=== PATIENT | female | born 1960 | race Caucasian/White ===

== ENCOUNTER → 2017-02-16 | Outpatient (REF) | LOC: LAB 10:56 | DX: E78.5 Hyperlipidemia, unspecified (principal); E11.8 Type 2 diabetes mellitus with unspecified complications ==

== ENCOUNTER → 2017-04-21 | Outpatient (REF) | LOC: LAB 10:18 | DX: E11.9 Type 2 diabetes mellitus without complications (principal) ==

== ENCOUNTER → 2019-01-06 | Outpatient (CLI) | payer SELFPAY ==
[2019-01-06 13:08] LABS: HEMATOCRIT 38.3 % (37.0-47.0); HEMOGLOBIN 12.5 g/dL (12.5-16.0); MEAN PLATELET VOLUME 10.1 fl (7.4-10.4); RED BLOOD COUNT 4.29 M/mm3 (4.10-5.30); RED CELL DISTRIBUTION WIDTH 13.4 % (11.5-14.5); WHITE BLOOD COUNT 9.8 K/mm3 (4.8-10.8)
== END ==
LOC: LAB 12:30
PROVIDERS: General Practice
DX: E11.9 Type 2 diabetes mellitus without complications (principal)

== ENCOUNTER 2021-04-16 13:11 | Emergency (ER) | payer OTHER ==
[~2021-04-16] VITALS: Ht 165.1 cm; Wt 115.0 kg
[2021-04-16 16:35] VITALS: BP 135/76
== END 2021-04-16 16:35 | disposition home or self-care (01) ==
LOC: ED 13:11
DX: M54.6 Pain in thoracic spine (principal); I10 Essential (primary) hypertension; W10.9XXA Fall (on) (from) unspecified stairs and steps, initial encounter

== ENCOUNTER 2022-05-23 14:41 | Emergency (ER) | payer SELFPAY ==
[~2022-05-23] VITALS: Ht 165.1 cm; Wt 106.8 kg
[2022-05-23] MEDS ORDERED: ATENOLOL25 MG PO (15:32)
[2022-05-23] MEDS ORDERED: ZESTRIL5 M1 PO (15:32)
[2022-05-23] MEDS ORDERED: SIMVASTATIN20 M1 PO (15:32)
[2022-05-23] MEDS ORDERED: MULTI-VITAMIN1 EACH PO (15:33)
[2022-05-23 16:29] LABS: BASO # 0.02 K/mm3 (0.02-0.10); EOS # 0.09 K/mm3 (0.04-0.40); EOS % 0.6 % (1.0-5.0); HEMATOCRIT 38.2 % (37.0-47.0); LYMPH# 1.39 K/mm3 (1.50-4.00); MEAN CELL VOLUME 93 fl (78-100); MEAN CORPUSCULAR HEMOGLOBIN 32 pg (27-31); MEAN CORPUSCULAR HGB CONC 34 g/dL (33-37); MEAN PLATELET VOLUME 10.3 fl (7.4-10.4); MONO # 0.97 K/mm3 (0.20-0.80); NEU # 12.69 K/mm3 (1.40-6.50); PLATELET COUNT 91 K/mm3 (130-400); RED BLOOD COUNT 4.09 M/mm3 (4.10-5.30); RED CELL DISTRIBUTION WIDTH 12.1 % (11.5-14.5); WHITE BLOOD COUNT 15.2 K/mm3 (4.8-10.8)
[2022-05-23 16:55] LABS: ALBUMIN 3.7 g/dL (3.4-4.8); POTASSIUM 4.3 mmol/L (3.5-5.1)
[2022-05-23 16:57] LABS: TOTAL PROTEIN 6.8 g/dL (6.2-8.1)
[2022-05-23 16:59] LABS: TOTAL BILIRUBIN 1.2 mg/dL (0.2-1.2)
[2022-05-23 19:12] LABS: URINE APPEARANCE HAZY; URINE BILIRUBIN NEGATIVE (NEGATIVE); URINE BLOOD 250 ery/uL (NEGATIVE); URINE COLOR YELLOW; URINE GLUCOSE NEGATIVE (NEGATIVE); URINE KETONE NEGATIVE (NEGATIVE); URINE LEUKOCYTE ESTERASE NEGATIVE (NEGATIVE); URINE NITRATE NEGATIVE (NEGATIVE); URINE PROTEIN(semi-quant) 2+ (NEGATIVE); URINE UROBILINOGEN NORMAL (NORMAL)
[2022-05-23 19:13] LABS: URINE MUCUS PRESENT (NOT PRESENT)
[2022-05-23 21:20] VITALS: BP 175/66
== END 2022-05-23 21:20 | disposition short-term general hospital (02) ==
LOC: ED 14:41
PROVIDERS: Nurse Practitioner; Physician Assistant
DX: N13.2 Hydronephrosis with renal and ureteral calculous obstruction (principal); N17.9 Acute kidney failure, unspecified; Z87.891 Personal history of nicotine dependence
CPT/HCPCS: J0696; J2270; J3010; J7030